=== PATIENT | female | born 1950 | race Caucasian/White ===

== ENCOUNTER 2017-06-13 14:15 | Outpatient (CLI) | payer MEDICARE, BC ==
--- NOTE | 2017-06-13 16:02 | RAD ---
LUMBAR SPINE FOUR VIEWS: Technique: AP along with lateral views with neutral, extension, and flexion positions obtained. Comparison: 02-28-13 FINDINGS: On the AP view there is a scoliotic curvature with convexity to the left with apex at L3 measured at 23 degrees. Lumbar vertebrae maintain height in the lateral view. No significant listhesis identified . There is loss of disc space at L4-5 and L5-S1. Prominent facet hypertrophy is seen. No significant changes in alignment with flexion or extension. IMPRESSION: Moderate degenerative changes of the lumbar spine with scoliotic curvature as described. POS: [facility]
--- NOTE | 2017-06-13 16:19 | CT ---
CT LUMBAR SPINE WITHOUT CONTRAST 06/13/17 HISTORY: Low back pain with pain radiating down both legs. Previous back surgery. COMPARISON: None. TECHNIQUE: Lumbar spine CT is performed without contrast. reformatted images are submitted for interpretation. FINDINGS: Symmetric attenuation of the psoas muscles. The visualized solid organs are unremarkable. The visuali zed aorta has a normal caliber. No periaortic fat stranding. The visualized alimentary canal is unremarkable. Minimal diverticulosis. Lumbar spine vertebral body height is maintained. There is no lumbar spine fracture. 2.8 mm of retrol isthesis of L2 upon L3. Vacuum disc phenomenon at L1-L2, L2-L3, L4-L5 and L5-S1. Posterior decompressive laminectomy changes at L2-L3, L3-L4. Limited evaluation of the contents of the central spinal canal and the neural foramina due to techniq ue. There is mild leftward curvature of the lumbar spine noted on coronal reformatted images. T12-L1: No high grade central canal stenosis. Bilaterally, neural foramina are patent. L1-L2: Vacuum disc phenomenon. Severe loss of disc space height. No high grade central canal stenosis . moderate right and mild to moderate left foraminal narrowing. L2-L3: Vacuum disc phenomenon. Generalized disc bulge. No high grade central canal stenosis. Severe r ight and moderate left foraminal narrowing. L3-L4: Posterior decompressive laminectomy changes. Generalized disc bulge. No high grade central yael nosis. Moderate right and moderate to severe left foraminal narrowing. L4-L5: Vacuum disc phenomenon. No high grade central canal stenosis. No significant posterior disc ab normality. Mild bilateral foraminal narrowing. There appears to be a indeterminate fracture involving the left lamina at L4. L5-S1: Vacuum disc phenomenon. No high grade central canal stenosis. Narrowing of the left subarticul ar zone due to posterior element hypertrophy. Partial obscuration traversing left S1 nerve root. Righ t subarticular zone is unremarkable. No significant stenosis of the thecal sac. Mild to moderate righ t and severe left foraminal narrowing. IMPRESSION: Postsurgical and degenerative change of the lumbar spine as detailed above. POS: [facility]
--- NOTE | 2017-06-13 18:26 | MRI ---
EXAM: LUMBAR SPINE MRI WITH AND WITHOUT CONTRAST 06/13/17 HISTORY: Bilateral leg pain. History of previous back surgery x5. COMPARISON: 06/12/13. TECHNIQUE: MRI of the lumbar spine is performed with and without gadolinium administration. Multisequential, mul tiplanar imaging performed. FINDINGS: Coronal T2 weighted images demonstrate levoscoliosis of the lumbar spine. The visualized solid organs have appropriate signal intensity. There is stable type I and type II Modic changes throughout the lumbar spine. 3 mm of anterolisthesis of L3 upon L4, 4 mm anterolisthesis of L4 upon L5. Evidence of edematous change along the inferior e nd plate of T12 and superior end plate of L1. Stable fluid signal intensity in the left and right int ra-articular facet at L3-L4. The conus medullaris terminates at the mid L1 level. Postcontrast images do not demonstrate any abnormal enhancement within the thecal sac. No abnormal en hancement of the cauda equina or conus medullaris. Laminectomy defects at L2-L3, L3-L4, and L4-L5. Enhancing scar tissue is noted at the laminectomy def ect site. No abnormal enhancement of the vertebral bodies. T12-L1: No significant posterior disc abnormality. No significant central canal stenosis. Foramina ar e patent. L1-L2: There is loss of disc space height. No high grade central canal stenosis. Moderate bilateral f oraminal narrowing. L2-L3: Posterior decompressive laminectomy changes. No high grade central canal stenosis. Severe bila teral foraminal narrowing. On the postcontrast images, there is enhancing scar tissue at the laminect saturnino defect site. There is also enhancing scar tissue in both subarticular zones, encompassing bilater al traversing L3 nerve roots. L3-L4: There are posterior decompressive laminectomy defects. There is no significant posterior disc abnormality. There is moderate central canal stenosis secondary to ligamentum flavum thickening and f acet hypertrophy. Moderate amount of fluid in both intra-articular facet joints. Moderate to severe b ilateral foraminal narrowing. Enhancing scar tissue at the laminectomy defect site and subarticular z ones encompassing bilateral traversing L4 nerve roots. L5-S1: Desiccation with mild loss of disc space height. There are posterior decompressive laminectomy changes. There is no high grade central canal stenosis. Moderate right and mild left foraminal narro wing. L5-S1: Disc desiccation with mild loss of disc space height. No high grade central canal stenosis. Mi ld narrowing of the left subarticular zone secondary to disc material and posterior element hypertrop hy. Partial obscuration of traversing left S1 nerve root. Mild to moderate right and moderate left fo raminal narrowing. IMPRESSION: 1. Postsurgical changes of the lumbar spine as above. 2. Degenerative changes of the lumbar spine as above. There is significant central canal stenosi s and foraminal narrowing at multiple levels. 3. Extensive enhancing scar tissue involving the left and right laminectomy defect sites as well as bilateral subarticular zone, at multiple levels. POS: [facility]
== END 2017-06-13 14:16 | disposition home or self-care (01) ==
LOC: TBSIIMAG 14:15
PROVIDERS: ATTEND Surgery
DX: M47.26 Other spondylosis with radiculopathy, lumbar region (principal); M41.9 Scoliosis, unspecified; Z98.890 Other specified postprocedural states
CPT/HCPCS: 72110; 72131; 72158

== ENCOUNTER 2017-09-26 14:00 | Inpatient (IN) | payer MEDICARE, BC ==
[2017-09-26 14:30] VITALS: BMI 28.2
[2017-10-03] MEDS ORDERED: Midazolam HCl 2 mg/2 ml Vial ONE (09:29)
[2017-10-03] MEDS ORDERED: Fentanyl 250 MCG/5 ML VIAL ONE (09:29)
[2017-10-03] MEDS ORDERED: Thrombin 5000 UNITS/5 ML VIAL ONE (09:30)
[2017-10-03] MEDS ORDERED: Bacitracin Zinc Ointment 30 gm TUBE ONE (09:30)
[2017-10-03] MEDS ORDERED: Propofol 200 MG/20 ML VIAL ONE (11:51)
[2017-10-03] MEDS ORDERED: Ondansetron HCl/PF 4 MG/2 ML Vial ONE (11:51)
[2017-10-03] MEDS ORDERED: Lidocaine 1% PF 5 ML VIAL ONE (11:51)
[2017-10-03] MEDS ORDERED: Glycopyrrolate 0.2 MG/ML 5 ML SYRINGE ONE (11:51)
[2017-10-03] MEDS ORDERED: ePHEDrine/0.9% NaCl/PF SYRINGE 50 mg/10 ml ONE (11:51)
[2017-10-03] MEDS ORDERED: PHENYLEPHRINE-NS 100 MCG/ML 10 ML SYRINGE ONE (11:51)
[2017-10-03] MEDS ORDERED: Dexamethasone 20 MG/5 ML VIAL ONE (11:51)
[2017-10-03] MEDS ORDERED: HYDROmorphone 2 MG/ML VIAL SLOW IVP PRN (13:15)
[2017-10-03] MEDS ORDERED: Morphine Sulfate 2 MG/ML SYRINGE SLOW IVP PRN (13:15)
[2017-10-03] MEDS ORDERED: Acetaminophen 325 MG TAB PO PRN (14:25)
[2017-10-03] MEDS ORDERED: Milk Of Magnesia 30 ML UDCUP PO PRN (14:25)
[2017-10-03] MEDS ORDERED: Fleet Enema 133 ML BOT PR PRN (14:25)
[2017-10-03] MEDS ORDERED: Bisacodyl 10 MG SUPP PR PRN (14:25)
[2017-10-03] MEDS ORDERED: Mag-Al 1200 mg/1200 mg/30 ML UDCUP PO PRN (14:25)
[2017-10-03] MEDS ORDERED: traMADol HCl 50 MG TAB PO PRN (14:25)
[2017-10-03] MEDS ORDERED: Morphine 4 MG/ML VIAL SLOW IVP PRN (14:25)
[2017-10-03] MEDS ORDERED: Acetaminophen/Codeine 30-300mg Tablet PO PRN (14:25)
[2017-10-03] MEDS ORDERED: Ondansetron HCl/PF 4 MG/2 ML Vial IVP PRN (14:28)
[2017-10-03] MEDS ORDERED: Clobetasol 0.05% Cream 15 gm Tube TOP PRN (14:29)
[2017-10-03] MEDS ORDERED: Azelastine 137 MCG/Spray 30 ML NS PRN (14:29)
[2017-10-03] MEDS ORDERED: Fluticasone Propionate Nasal Spray 16 gm Bottle NASAL PRN (14:29)
[2017-10-03] MEDS ORDERED: Fentanyl 100 MCG/2 ML VIAL ONE (14:37)
--- NOTE | 2017-10-03 15:32 | OP ---
SURGEON: Fer Marks M.D. PIECE MAKER: Josue Ferraro PA-C. OR: 11. WOUND TYPE: Type 1 wound. 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 PROCEDURES PERFORMED: 1. Left L3-L4 synovial cyst resection with left L3 and left L4 foraminotomies. 2. Revision right L3-L4 hemilaminotomy, foraminotomy for decompression of the right L3 and right L4 nerve roots. DESCRIPTION OF PROCEDURE: After informed consent was obtained from the patient, the patient brought to OR 11. Proper patient pause and identification was carried out. She was placed under excellent a nesthesia and positioned prone on the operating room table. The prior midline lumbar wound was ident ified. This region was sterilely cleansed, prepared, and draped. Proper patient pause and identific ation was carried out. A small incision was made over the L3-L4 segment. Localization film confirme d our area of interest. Exuberant scar tissue was identified and required further bone work given th e prior surgery to decompress the left L3-L4 and right L3-L4 segments. It was clear that the left L3 -L4 segment had a synovial cyst and this was resected and I was able to achieve excellent decompressi on of left L3 and left L4 nerve root. I then turned my attention to the right L3-L4 segment, did a r evision hemilaminotomy, foraminotomies for decompression of the right L3 and right L4 nerve roots. I do not think it is necessary to do a diskectomy as we had excellent decompression of the right L3 an d right L4 nerve roots. Copious irrigation occurred throughout as did maximizing hemostasis. The wo und was then closed in anatomic layers following the sprinkling of vancomycin powder. There was no s ngoc fluid leak.
[2017-10-03] MEDS ORDERED: CEFAZOLIN/Water 2 GM/20 ML SYRINGE SLOW IVP SCH (16:00)
[2017-10-03] MEDS: Sodium Chloride 0.9% 1,000 ML IV SCH (16:33)
[2017-10-03] MEDS: tiZANidine HCl 4 MG TAB PO PRN (17:58)
[2017-10-03] MEDS: HYDROcodone/Acetaminophen 7.5/325 mg Tablet PO PRN (17:58)
[2017-10-03] MEDS: CEFAZOLIN/Water 2 GM/20 ML SYRINGE SLOW IVP SCH (18:49)
[2017-10-04] MEDS: HYDROcodone/Acetaminophen 7.5/325 mg Tablet PO PRN (03:39)
[2017-10-04] MEDS: tiZANidine HCl 4 MG TAB PO PRN (03:40)
[2017-10-04] MEDS: CEFAZOLIN/Water 2 GM/20 ML SYRINGE SLOW IVP SCH (03:44)
[2017-10-04] MEDS: Sodium Chloride 0.9% 1,000 ML IV SCH (03:45)
[2017-10-04 08:42] VITALS: BP 89/47; TEMP 98.3
[2017-10-04] MEDS ORDERED: Prevnar 13-Val Conj/PF 0.5 ML SYRINGE IM ONE (09:00)
[2017-10-04] MEDS ORDERED: MAGNESIUM CITRATE PO SCH (09:00)
--- NOTE | 2017-10-04 12:56 | PRG ---
DATE OF SERVICE: 10/04/2017 Josue Ferraro PA-C, dictating for Fer Marks MD Ms. Tee is now postoperative day #1, having undergone revision L3-4 hemilaminotomies, foraminotom ies with synovial cystectomy on the right. The patient is doing well postoperatively. She has minim al low back pain, but states the leg pain she experienced preoperatively has completely resolved at t his time. She was asked to go home. She has good strength in the bilateral lower extremities with intact sensation to light touch through out. This time, the patient is stable for discharge and has met criteria. I have provided appropriate out patient prescriptions and followups have already been scheduled. We went over postoperative activity restrictions. Again, the patient is pleased with her outcome postoperatively and is ready for dismi ssal any time today.
[2017-10-04] MEDS ORDERED: Magnesium Chloride 64 MG TAB PO SCH (21:00)
== END 2017-10-04 13:30 | disposition home or self-care (01) | DRG 520 ==
LOC: SURG A 10-03 07:15
PROVIDERS: ADMIT Surgery; ATTEND Surgery
PROC: 0SB00ZZ Excision of Lumbar Vertebral Joint, Open Approach (ICD-10-PCS; principal; 2017-10-03)
PROC: 01NB0ZZ Release Lumbar Nerve, Open Approach (ICD-10-PCS; 2017-10-03)
DX: M48.061 Spinal stenosis, lumbar region without neurogenic claudication (principal); M54.16 Radiculopathy, lumbar region; M71.38 Other bursal cyst, other site
CPT/HCPCS: 76001; 96374; A4216; J1100; J2001; J2250; J2405; J2704; J3010; J3370; J3490

== ENCOUNTER 2017-09-26 14:09 | Outpatient (CLI) | payer MEDICARE, BC ==
[2017-09-26 15:31] LABS: Hemoglobin 16.5 g/dL (12.0-16.0); Mean Corpuscular HGB CONC 35.1 g/dL (32.0-36.0); Mean Corpuscular Hemoglobin 34.1 pg (27.0-31.0); Mean Corpuscular Volume 97.2 fl (81.0-99.0); Mean Platelet Volume 6.4 fL (7.4-10.4); Platelet Count 223 thou/uL (130-400); RBC Distribution Width 11.8 % (11.5-14.5); Red Blood Cell (RBC) Count 4.85 mill/uL (4.20-5.40); White Blood Cell (WBC) Count 4.5 thou/uL (4.8-10.8)
[2017-09-26 15:37] LABS: INR-International Normal Ratio 1.1; PTT 28.3 SEC (22.9-36.1); Prothrombin Time 14.5 SEC (12.0-14.7)
[2017-09-26 15:56] LABS: Anion Gap 10 mmol/L (10-20); BUN (Urea Nitrogen) 7 mg/dL (9.8-20.1); Calc. Creatinine Clearance 0 mL/min (70-130); Calcium 9.3 mg/dL (7.8-10.44); Carbon Dioxide 27 mmol/L (23-31); Chloride 106 mmol/L (98-107); Estimated GFR-MDRD 79; Glucose 91 mg/dL (80-115); Potassium 4.3 mmol/L (3.5-5.1); Sodium 139 mmol/L (136-145)
== END 2017-09-26 14:10 | disposition home or self-care (01) ==
LOC: LABBT 14:09
PROVIDERS: ATTEND Surgery
DX: Z01.818 Encounter for other preprocedural examination (principal); M48.061 Spinal stenosis, lumbar region without neurogenic claudication; M71.30 Other bursal cyst, unspecified site; M54.16 Radiculopathy, lumbar region
CPT/HCPCS: 80048; 85027; 85610; 85730; 93005; 93010

== ENCOUNTER 2018-08-28 13:58 | Outpatient (CLI) | payer MEDICARE, BC ==
--- NOTE | 2018-08-28 14:58 | BD ---
DEXA BONE DENSITY STUDY: History: Post-menopausal. Exam: DEXA Bone Density Lumbar Spine: BMD (g/cm2) L1 1.042 T-Score: 0.5 L2 1.039 T-Score: 0.1 L3 1.033 T-Score: -0.5 L4 1.020 T-Score: -0.4 L1-L4 1.033 T-Score: -0.1 Femoral Neck: 0.652 T-Score: -1.8 Total Femur: 0.964 T-Score: 0.2 Impression: 1. Osteopenia of the left femoral neck. Normal bone mineral density of the lumbar spine. 2. [id number] risk of major osteoporotic fracture is 9.8% and hip fracture 1.3%. These fracture probabilities are calculated for an un-treated patient. POS: [facility]
--- NOTE | 2018-08-28 15:20 | ULT ---
LIMITED ULTRASOUND LEFT BREAST: Date: 08/28/18 HISTORY: Mass in left breast noted on screening mammography. FINDINGS: There is a hypoechoic mass seen in the left breast which measures approximately 8.0 mm with a few adj acent small hypoechoic nodular lesions also seen adjacent to the large hypoechoic nodule, largest bianka suring approximately 4.0 mm. This could represent irregularity of a lymph node in this region, but a definitive fatty hilum with internal flow is not delineated to definitely suggest that this represent s a lymph node. As a result, biopsy is warranted. IMPRESSION: BIRADS Category 4 - Suspicious abnormality. Biopsy is recommended. Mass in the left breast does corre spond to mammographic abnormality and is amenable to ultrasound guided left breast biopsy. Above findings discussed with Dr. Pedro Gonzalez' nurse, on 08/28/18 at 1453 hours. CODE CR. POS: [facility]
== END 2018-08-28 13:59 | disposition home or self-care (01) ==
LOC: BICULT 13:58
PROVIDERS: ATTEND Obstetrics & Gynecology
DX: Z13.820 Encounter for screening for osteoporosis (principal); R92.8 Other abnormal and inconclusive findings on diagnostic imaging of breast; M85.852 Other specified disorders of bone density and structure, left thigh; N63.20 Unspecified lump in the left breast, unspecified quadrant
CPT/HCPCS: 77080

== ENCOUNTER 2018-09-06 08:51 | Outpatient (CLI) | payer MEDICARE, BC ==
--- NOTE | 2018-09-06 09:31 | MMO ---
Left Breast MAMMO Unilat Diag DDI LT. CLINICAL HISTORY: Patient is 67 years old and is seen for breast biopsy. The patient has the following family history of breast cancer: mother, at age 65. The patient has no personal history of cancer. The patient has a history of left Ultrasound Guided Core Biopsy in August,. VIEWS: The views performed were: left craniocaudal and left mediolateral oblique. FILMS COMPARED: The present examination has been compared to a [facility]. MAMMOGRAM FINDINGS: There are scattered fibroglandular densities. There is a round mass with associated biopsy clip seen in the left breast at 9 o'clock. IMPRESSION: MASS IN THE LEFT BREAST IS CONFIRMED UTILIZING POST PROCEDURE MAMMOGRAM. THE RESULTS OF THIS EXAM WERE SENT TO THE PATIENT. MAMMOGRAPHY NOTE: 1. A negative mammogram report should not delay a biopsy if a dominant of clinically suspicious mass is present. 2. Approximately 10% to 15% of breast cancers are not detected by mammography. 3. Adenosis and dense breasts may obscure an underlying neoplasm.
== END 2018-09-06 08:52 | disposition home or self-care (01) ==
LOC: BICMAMMO 08:51
PROVIDERS: ATTEND Specialist
DX: N63.24 Unspecified lump in the left breast, lower inner quadrant (principal); Z80.3 Family history of malignant neoplasm of breast

== ENCOUNTER 2018-09-14 00:05 | Outpatient (CLI) | payer MEDICARE, BC ==
[2018-09-14 11:59] LABS: #Eosinphils 0.1 thou/uL (0.0-0.7); #Lymphocytes 1.7 thou/uL (1.20-3.40); #Monocytes 0.3 thou/uL (0.11-0.59); %Basophils 0.9 % (0.0-1.0); %Lymphocytes 40.8 % (21.0-51.0); %Monocytes 7.8 % (0.0-10.0); %Neutrophils 47.5 % (42.0-75.0); Hemoglobin 16.4 g/dL (12.0-16.0); Mean Corpuscular HGB CONC 33.4 g/dL (32.0-36.0); Mean Corpuscular Volume 95.7 fL (78.0-98.0); Mean Platelet Volume 6.7 fL (7.4-10.4); Platelet Count 240 thou/uL (130-400); RBC Distribution Width 11.8 % (11.5-14.5); Red Blood Cell (RBC) Count 5.14 mill/uL (4.20-5.40); White Blood Cell (WBC) Count 4.1 thou/uL (4.8-10.8)
[2018-09-14 12:24] LABS: Anion Gap 12 mmol/L (10-20); BUN (Urea Nitrogen) 14 mg/dL (9.8-20.1); Calc. Creatinine Clearance 0 mL/min (70-130); Calcium 9.8 mg/dL (7.8-10.44); Carbon Dioxide 27 mmol/L (23-31); Chloride 106 mmol/L (98-107); Estimated GFR-MDRD 75; Glucose 106 mg/dL (80-115); Potassium 4.6 mmol/L (3.5-5.1); Sodium 140 mmol/L (136-145)
--- NOTE | 2018-09-14 16:23 | EKG ---
Test Reason : Blood Pressure : / mmHG Vent. Rate : 061 BPM Atrial Rate : 061 BPM P-R Int : 182 ms QRS Dur : 078 ms QT Int : 410 ms P-R-T Axes : 058 063 053 degrees QTc Int : 412 ms Normal sinus rhythm Normal ECG When compared with ECG of 26-SEP-2017 14:06, No significant change was found Confirmed by DR. Kunal CABRERA ([id number]) on 09/14/2018 4:23:08 PM Referred By: ADALID Confirmed By:DR. Kunal CABRERA
== END 2018-09-14 00:06 | disposition home or self-care (01) ==
LOC: LABBT 00:05
PROVIDERS: ATTEND Specialist
DX: Z01.818 Encounter for other preprocedural examination (principal); N64.9 Disorder of breast, unspecified
CPT/HCPCS: 80048; 85025; 93005; 93010

== ENCOUNTER 2018-09-18 11:08 | Day surgery (SDC) | payer MEDICARE, BC ==
[2018-09-14 11:21] VITALS: BMI 29.0
[~2018-09-18 11:08] MED LIST: Dexamethasone 20 MG/5 ML VIAL ONE; Lidocaine 1% PF 5 ML VIAL ONE; Ondansetron PF 4 MG/2 ML Vial ONE; PROPOFOL 200 MG/20 ML VIAL ONE; ePHEDrine 50 MG/ML VIAL ONE
[2018-09-18] MEDS ORDERED: Ketorolac Tromethamine 30 MG/ML VIAL ONE (12:07)
[2018-09-18] MEDS ORDERED: Bupivacaine/Epinephrine 0.25% 30 ML VIAL ONE (13:35)
[2018-09-18] MEDS ORDERED: Fentanyl 100 MCG/2 ML VIAL ONE (13:39)
--- NOTE | 2018-09-19 00:17 | OP ---
DATE OF PROCEDURE: 09/18/2018 PREOPERATIVE DIAGNOSIS: Atypical left breast lesion. POSTOPERATIVE DIAGNOSIS: Atypical left breast lesion. OPERATION PERFORMED: Ultrasound-guided needle localization of left breast mass, needle localized excisional biopsy. ANESTHESIA: General using a laryngeal mask airway, augmented with local using 0.25% Marcaine with epinephrine. INDICATIONS: The patient is a 67-year-old white female. She recently had a mammogram revealing a concerning lesion in the upper inner left breast. I performed an ultrasound-guided needle biopsy a couple of weeks ago and this revealed an atypical lesion, it was felt to potentially be suspicious. I recommended completion excisional biopsy. DESCRIPTION OF OPERATION: Informed consent was obtained. The patient taken to the operating room where general anesthesia was obtained with the patient in supine position. Left breast was prepped with ChloraPrep and draped in sterile fashion. Ultrasound was utilized to manjeet the lesion on the skin in a grid-type fashion. I then passed a localizing wire through the lesion using ultrasound guidance in a lateral to medial fashion. Additional local anesthetic was infiltrated. A transverse incision was created based on needle entry site. Dissection was carried through skin and subcutaneous tissue. Flaps were raised circumferentially. The tissue into which the localizing wire entered was grasped with an Allis clamp and careful dissection was carried out around the wire so as to excise a lump of tissue around the wire. Attempt was made to err on the superior aspect as that was the location of the bulk of the tumor. The tumor was removed intact using ultrasound guidance during the course of excision. It was tagged with suture for orientation and passed off the field. Meticulous hemostasis was obtained within the wound. The incision was closed in layers using 3-0 and 4-0 Monocryl and Dermabond was placed externally. Postprocedure x-ray documents removal of the clip with the localizing wire. There were no complications. The patient tolerated the procedure well and was taken to recovery room in stable condition. Job ID: [id number]
== END 2018-09-18 17:32 | disposition home or self-care (01) ==
LOC: SDC 11:08
PROVIDERS: ATTEND Specialist
PROC: 0HBU3ZX Excision of Left Breast, Percutaneous Approach, Diagnostic (ICD-10-PCS; principal; 2018-09-18)
DX: N60.22 Fibroadenosis of left breast (principal); Z79.899 Other long term (current) drug therapy; Z88.8 Allergy status to other drugs, medicaments and biological substances
CPT/HCPCS: 76098; 88307; 88341; 88342; J0131; J1100; J1885; J2001; J2405; J2704; J3010; J3490

== ENCOUNTER 2020-05-03 13:49 | Emergency (ER) | payer MEDICARE, BC ==
[2020-05-03] MEDS ORDERED: Iopamidol-370 76% 500 ML 1 ML ONE (15:43)
--- NOTE | 2020-05-03 16:36 | RAD ---
TWO VIEWS CHEST: Date: 05-03-2020 PROVIDED CLINICAL HISTORY: Back pain FINDINGS: There is conspicuous right convexity scoliosis of the thoracic spine. Left basilar pleural and/or par enchymal opacity. Right lung appears clear. No pneumothorax is evident. Heart size is likely within n ormal limits. IMPRESSION: Left basilar pleural and/or parenchymal opacity. POS: [facility]
[2020-05-03] MEDS ORDERED: Ketorolac Tromethamine 30 MG/ML VIAL ONE (16:37)
[2020-05-03 16:50] LABS: #Eosinphils 0.1 thou/uL (0.0-0.7); #Lymphocytes 1.2 thou/uL (1.20-3.40); #Monocytes 0.5 thou/uL (0.11-0.59); #Neutrophils 4.9 thou/uL (1.40-6.50); %Basophils 0.4 % (0.0-1.0); %Eosinophils 1.1 % (0.0-10.0); %Lymphocytes 18.5 % (21.0-51.0); %Monocytes 7.3 % (0.0-10.0); %Neutrophils 72.7 % (42.0-75.0); Hemoglobin 16.9 g/dL (12.0-16.0); Mean Corpuscular HGB CONC 34.4 g/dL (32.0-36.0); Mean Corpuscular Hemoglobin 33.3 pg (27.0-31.0); Mean Corpuscular Volume 96.7 fL (78.0-98.0); Mean Platelet Volume 6.7 fL (7.4-10.4); Platelet Count 287 thou/uL (130-400); RBC Distribution Width 11.5 % (11.5-14.5); Red Blood Cell (RBC) Count 5.09 mill/uL (4.20-5.40); White Blood Cell (WBC) Count 6.7 thou/uL (4.8-10.8)
[2020-05-03 17:10] LABS: ALT (SGPT) 54 U/L (8-55); AST (SGOT) 48 U/L (5-34); Albumin 4.8 g/dL (3.4-4.8); Alkaline Phosphatase 60 U/L (40-110); Anion Gap 18 mmol/L (10-20); BUN (Urea Nitrogen) 12 mg/dL (9.8-20.1); Bilirubin, Total 1.2 mg/dL (0.2-1.2); Calc. Creatinine Clearance 0 mL/min (70-130); Calcium 10.2 mg/dL (7.8-10.44); Carbon Dioxide 23 mmol/L (23-31); Chloride 102 mmol/L (98-107); Estimated GFR-MDRD 77; Globulin 3.1 g/dL (2.4-3.5); Glucose 77 mg/dL (80-115); Potassium 4.3 mmol/L (3.5-5.1); Protein, Total 7.9 g/dL (6.0-8.3); Sodium 139 mmol/L (136-145)
--- NOTE | 2020-05-03 17:14 | CT ---
CT BRAIN: Date: 05-03-2020 PROVIDED CLINICAL HISTORY: Trauma FINDINGS: No comparisons. The ventricular system appears normal in size and morphology. There is no evidence for intracranial h emorrhage or mass effect. Left frontal scalp swelling is seen without evidence for skull fracture. IMPRESSION: No evidence for intracranial hemorrhage or skull fracture. POS: [facility]
[2020-05-03] MEDS ORDERED: Morphine 2 MG/ML VIAL ONE (17:42)
--- NOTE | 2020-05-03 17:48 | CT ---
CTA Angio Chest W WO Con 05/03/2020 5:18 PM Indication: Left lower lobe pneumonia and back pain after fall Technique: Multiple CTA images were obtained of the thorax with IV contrast. 3-D rendering: MIP ana luisa nstructed images were created and reviewed. Comparison: No relevant prior studies available. Findings: Pulmonary arteries: No central or segmental pulmonary embolus is evident. Heart and Aorta: Normal appearing. Mediastinum:Normal appearing. No enlarged lymph nodes. Lungs:There is subsegmental volume loss in the lingula and left lower lobe. Pleural space: There is a small left and tiny right pleural effusion Upper Abdomen: There is a small hiatal hernia. Osseous Structures: There is a moderate wedge compression fracture of T5 with retropulsion of bone f ragments within the posterior canal of 1.6 mm. There is mild osseous central canal narrowing at this level. There is diffuse osteopenia. There is an ACDF at C6-7. Soft tissues:No abnormality. Other findings:None. Impression: 1. No central or segmental pulmonary embolus. 2. Moderate wedge compression fracture of T5 with mild osseous central canal narrowing due to posteri or retropulsion of bone fragments from the posterior margin at T5. 3. Small left and tiny right pleural effusion with left lingular and left basilar subsegmental atelec tasis.
== END 2020-05-03 19:22 | disposition home or self-care (01) ==
LOC: ERS 13:49
DX: S22.050A Wedge compression fracture of T5-T6 vertebra, initial encounter for closed fracture (principal); S00.12XA Contusion of left eyelid and periocular area, initial encounter; S00.11XA Contusion of right eyelid and periocular area, initial encounter; J45.909 Unspecified asthma, uncomplicated; G43.909 Migraine, unspecified, not intractable, without status migrainosus; W18.30XA Fall on same level, unspecified, initial encounter
CPT/HCPCS: 70450; 71046; 71275; 80053; 83605; 85025; 96374; 96375; 99284; J2270; J1885; Q9967

== ENCOUNTER 2020-05-07 15:05 | Emergency (ER) | payer MEDICARE, BC ==
[2020-05-07] MEDS ORDERED: Ondansetron ODT 4 MG TAB ONE (16:12)
[2020-05-07] MEDS ORDERED: Morphine 4 MG/ML VIAL ONE (16:12)
[2020-05-07] MEDS ORDERED: Diazepam 10 MG/2 ML SYRINGE ONE (16:14)
== END 2020-05-07 16:30 | disposition home or self-care (01) ==
LOC: ERS 15:05
DX: M54.6 Pain in thoracic spine (principal); R58 Hemorrhage, not elsewhere classified; J45.909 Unspecified asthma, uncomplicated
CPT/HCPCS: 96372; 99283; J2270; J3360; Q0162

== ENCOUNTER 2020-05-15 11:49 | Outpatient (CLI) | payer MEDICARE, BC ==
--- NOTE | 2020-05-15 13:03 | RAD ---
Radiograph thoracic spine 3 views: 05/15/2020 HISTORY: 69-year-old female follow-up burst fracture of mid thoracic spine. COMPARISON: CT 05/03/2020 FINDINGS: Again demonstrated is the anterior wedge compression fracture deformity of T5 vertebral body. The bon y retropulsion demonstrated on the prior CT is more difficult to appreciate on this plain radiograph, because of combination of overlap with scapula on lateral and swimmer's views, and the so mewhat severe dextroscoliosis of the thoracic spine (apex of curvature at lower T-spine), as well as diffuse osteopenia. Maximum anterior loss of height is approximately 75%. Probably no significant interval change, although it would be more accurate to compare the previous CT with another CT rather than plain radiograph. Thoracic spondylosis. Levoscoliosis of lumbar spine. IMPRESSION: 1.) Acute/subacute, traumatic burst fracture of T5 vertebra. 2) high-grade dextroscoliosis of thoracic spine, as part of S-shaped scoliosis
== END 2020-05-15 11:50 | disposition home or self-care (01) ==
LOC: BICRAD 11:49
PROVIDERS: ATTEND Surgery
DX: S22.051A Stable burst fracture of T5-T6 vertebra, initial encounter for closed fracture (principal); M41.84 Other forms of scoliosis, thoracic region
CPT/HCPCS: 72070

== ENCOUNTER 2020-06-16 13:41 | Outpatient (CLI) | payer MEDICARE, BC ==
--- NOTE | 2020-06-16 16:05 | RAD ---
EXAM: XR Thoracic Spine 3 V STANDARD PROVIDED CLINICAL HISTORY: History of a thoracic vertebral body fracture. Other fracture of unspecified thoracic vertebra. COMPARISON: 05/15/2020 FINDINGS: Postoperative changes lower cervical spine are noted with anterior plate and screws transfixing the C 5 and C6 vertebral bodies. Again noted is the prominent wedge-shaped compression fracture of the T5 vertebral body. Degenerative changes are seen within the visualized lower cervical spine as well as i nvolving the thoracic spine. Again noted is right convex scoliosis of the thoracolumbar spine. Degenerative changes in the visualized upper lumbar spine. Minimal patchy density seen in the left lung base. This could be related to atelectasis. Pneumonitis cannot be entirely excluded. IMPRESSION: 1. Minimal patchy density left lung base probably attributable to atelectasis. Developing pneumonitis cannot be entirely excluded. Clinical correlation suggested. 2. Persistent wedge-shaped/burst fracture T5 vertebral body with degree of height loss similar to zoila or exam. Degree of retropulsion of fracture fragments is difficult to assess on this exam. 3. Scoliosis thoracic spine. 4. Degenerative changes visualized cervical and lumbar spine as well as involving the thoracic spine.
== END 2020-06-16 13:42 | disposition home or self-care (01) ==
LOC: BICRAD 13:41
PROVIDERS: ATTEND Surgery
DX: S22.051D Stable burst fracture of T5-T6 vertebra, subsequent encounter for fracture with routine healing (principal); M54.6 Pain in thoracic spine; R91.8 Other nonspecific abnormal finding of lung field; J18.9 Pneumonia, unspecified organism; M41.9 Scoliosis, unspecified; M47.812 Spondylosis without myelopathy or radiculopathy, cervical region; M47.814 Spondylosis without myelopathy or radiculopathy, thoracic region; M47.816 Spondylosis without myelopathy or radiculopathy, lumbar region
CPT/HCPCS: 72072

== ENCOUNTER 2020-07-28 15:51 | Outpatient (CLI) | payer MEDICARE, BC ==
--- NOTE | 2020-07-28 16:28 | RAD ---
Thoracic spine 3 views-frontal, lateral, and swimmer's lateral view: 07/28/2020 COMPARISON: 06/16/2020 HISTORY: Thoracic spine fracture FINDINGS: There is prominent scoliosis with apex to the right in the lower thoracic region and apex t o left in the upper lumbar region. There is a fracture burst fracture at T5 with significant loss of vertebral body height anteriorly, difficult to quantify given limited assessment on the lateral vi ew secondary to scoliosis and positioning. When compared to the 06/16/2020 exam this fracture does not appear significantly changed. No obvious new fracture. IMPRESSION: Findings suggesting a stable T5 burst fracture with significant vertebral body height los s.
== END 2020-07-28 15:52 | disposition home or self-care (01) ==
LOC: BICRAD 15:51
PROVIDERS: ATTEND Surgery
DX: S22.008A Other fracture of unspecified thoracic vertebra, initial encounter for closed fracture (principal); M54.6 Pain in thoracic spine
CPT/HCPCS: 72072